=== PATIENT | female | born 1955 | race Caucasian/White ===

== ENCOUNTER → 2017-05-06 | Outpatient (CLI) | payer BC ==
[2017-05-06 07:26] LABS: CH 30.4; CHCM 35.3; HCT 41.4 % (34.0-46.0); HDW 2.55; HGB 14.7 gm/dL (11.4-16.0); MCH 30.6 pg (25.0-35.0); MCHC 35.5 g/dL (31.0-37.0); MCV 86.2 fL (80.0-100.0); Mean Platelet Volume 6.5; RDW 11.4 % (11.5-15.5); WBC 4.8 k/uL (3.8-10.6)
[2017-05-06 08:05] LABS: Anion Gap 10 mmol/L; Blood Urea Nitrogen 12 mg/dL (7-17); Calcium 9.3 mg/dL (8.4-10.2); Carbon Dioxide 25 mmol/L (22-30); Chloride 99 mmol/L (98-107); Cholesterol 143 mg/dL (<200); Glucose 90 mg/dL (74-99); HDL Cholesterol 84 mg/dL (40-60); Non-African American GFR(MDRD) >60 (>60 ml/min/1.73 sqM); Potassium 4.6 mmol/L (3.5-5.1); Sodium 134 mmol/L (137-145)
== END | disposition home or self-care (01) ==
LOC: LABWHC1 06:30
PROVIDERS: ATTEND Nurse Practitioner Women's Health
DX: I10 Essential (primary) hypertension (principal)
CPT/HCPCS: 36415; 80048; 80061; 84443; 85027

== ENCOUNTER → 2018-05-13 | Outpatient (CLI) | payer BC ==
--- NOTE | 2018-05-15 10:22 | MM ---
Reason for exam: screening (asymptomatic). Last mammogram was performed 1 year and 10 months ago. History: Patient is postmenopausal and had first child at age 46. Physical Findings: A clinical breast exam by your physician is recommended on an annual basis and results should be correlated with mammographic findings. MG Screening Mammo w CAD Bilateral CC and MLO view(s) were taken. Prior study comparison: July 16, 2016, bilateral MG screening mammo w CAD. September 15, 2013, bilateral digital screening mammo w/CAD. There are scattered fibroglandular densities. No significant changes when compared with prior studies. ASSESSMENT: Negative, BI-RAD 1 RECOMMENDATION: Routine screening mammogram of both breasts in 1 year.
== END | disposition home or self-care (01) ==
LOC: RADMAMWWP 12:47
PROVIDERS: ATTEND Family Medicine
DX: Z12.31 Encounter for screening mammogram for malignant neoplasm of breast (principal)
CPT/HCPCS: 77067

== ENCOUNTER → 2018-06-10 | Outpatient (CLI) | payer BC ==
[2018-06-10 07:14] LABS: Basophils % (A) 1 %; Eosinophils # (A) 0.1 k/uL (0-0.7); Eosinophils % (A) 1 %; HCT 40.9 % (34.0-46.0); HGB 14.3 gm/dL (11.4-16.0); Lymphocytes # (A) 1.6 k/uL (1.0-4.8); Lymphocytes % (A) 39 %; MCH 30.4 pg (25.0-35.0); Mean Platelet Volume 6.4; Monocytes # (A) 0.3 k/uL (0-1.0); Monocytes % (A) 6 %; Neutrophils # (A) 2.1 k/uL (1.3-7.7); Neutrophils % (A) 50 %; Platelet Count 344 k/uL (150-450); RDW 11.7 % (11.5-15.5); WBC 4.2 k/uL (3.8-10.6)
[2018-06-10 18:00] LABS: ALT 26 U/L (8-44); AST 28 U/L (13-35); Albumin/Globulin Ratio 2.25 (1.20-2.10); Alkaline Phosphatase 65 U/L (41-126); Calcium 9.2 mg/dL (8.7-10.3); Carbon Dioxide 25.9 mmol/L (21.6-31.8); Chloride 100 mmol/L (96-109); Cholesterol 149 mg/dL (0-200); Glucose 95 mg/dL (70-110); Potassium 4.8 mmol/L (3.5-5.5); Sodium 133 mmol/L (135-145); Total Bilirubin 0.8 mg/dL (0.2-1.2); Total Protein 6.5 g/dL (6.2-8.2); Triglycerides <50.0 mg/dL (0.0-149.0); VLDL Calculation 9.98 mg/dL (5.00-40.00)
== END | disposition home or self-care (01) ==
LOC: LABWHC1 06:35
PROVIDERS: ATTEND Nurse Practitioner Women's Health
DX: Z00.00 Encounter for general adult medical examination without abnormal findings (principal); E03.9 Hypothyroidism, unspecified; Z79.899 Other long term (current) drug therapy
CPT/HCPCS: 36415; 80053; 80061; 84439; 84443; 85025

== ENCOUNTER → 2019-06-30 | Outpatient (CLI) | payer BC, OTHER ==
[2019-06-30 07:42] LABS: Basophils # (A) 0.1 k/uL (0-0.2); Basophils % (A) 1 %; Eosinophils # (A) 0.1 k/uL (0-0.7); Eosinophils % (A) 2 %; HCT 42.4 % (34.0-46.0); HGB 14.5 gm/dL (11.4-16.0); Lymphocytes # (A) 1.3 k/uL (1.0-4.8); Lymphocytes % (A) 29 %; MCH 29.7 pg (25.0-35.0); MCHC 34.1 g/dL (31.0-37.0); MCV 86.9 fL (80.0-100.0); Mean Platelet Volume 6.3; Monocytes # (A) 0.3 k/uL (0-1.0); Monocytes % (A) 7 %; Neutrophils # (A) 2.6 k/uL (1.3-7.7); Neutrophils % (A) 59 %; Platelet Count 335 k/uL (150-450); RBC 4.88 m/uL (3.80-5.40); RDW 11.3 % (11.5-15.5); WBC 4.4 k/uL (3.8-10.6)
[2019-06-30 11:43] LABS: ALT 21 U/L (8-44); AST 23 U/L (13-35); African American GFR (CKD) 113.2 (60.0-200.0); Albumin/Globulin Ratio 2.32 (1.60-3.17); Alkaline Phosphatase 70 U/L (41-126); BUN/Creat Ratio 16.67 Ratio (12.00-20.00); Calcium 8.9 mg/dL (8.7-10.3); Carbon Dioxide 27.2 mmol/L (21.6-31.8); Chloride 101 mmol/L (96-109); Chol/HDL Ratio 1.86; Cholesterol 147 mg/dL (0-200); Globulin 1.9 g/dL (1.6-3.3); Glucose 92 mg/dL (70-110); Potassium 4.1 mmol/L (3.5-5.5); Sodium 136 mmol/L (135-145); Total Bilirubin 0.7 mg/dL (0.3-1.2); Total Protein 6.3 g/dL (6.2-8.2); Triglycerides <50.0 mg/dL (0.0-149.0)
== END | disposition home or self-care (01) ==
LOC: LABWHC1 06:47
PROVIDERS: ATTEND Nurse Practitioner Women's Health
DX: Z00.00 Encounter for general adult medical examination without abnormal findings (principal); I10 Essential (primary) hypertension; Z79.899 Other long term (current) drug therapy
CPT/HCPCS: 36415; 80053; 80061; 84439; 84443; 85025

== ENCOUNTER → 2020-05-23 | Outpatient (CLI) | payer BC, OTHER ==
[2020-05-23 07:38] LABS: Basophils % (A) 1 %; Eosinophils # (A) 0.1 k/uL (0-0.7); Eosinophils % (A) 1 %; HCT 42.1 % (34.0-46.0); HGB 14.3 gm/dL (11.4-16.0); Lymphocytes # (A) 1.4 k/uL (1.0-4.8); Lymphocytes % (A) 19 %; MCH 29.2 pg (25.0-35.0); MCHC 33.9 g/dL (31.0-37.0); MCV 86.1 fL (80.0-100.0); Mean Platelet Volume 6.5; Monocytes # (A) 0.4 k/uL (0-1.0); Monocytes % (A) 5 %; Neutrophils # (A) 5.3 k/uL (1.3-7.7); Neutrophils % (A) 74 %; Platelet Count 316 k/uL (150-450); RBC 4.89 m/uL (3.80-5.40); RDW 11.9 % (11.5-15.5); WBC 7.2 k/uL (3.8-10.6)
[2020-05-23 14:10] LABS: ALT 16 U/L (8-44); AST 22 U/L (13-35); African American GFR (CKD) 112.4 (60.0-200.0); Albumin/Globulin Ratio 2.15 (1.60-3.17); Alkaline Phosphatase 67 U/L (41-126); Calcium 9.1 mg/dL (8.7-10.3); Chloride 99 mmol/L (96-109); Chol/HDL Ratio 1.91; Cholesterol 155 mg/dL (0-200); Glucose 98 mg/dL (70-110); Potassium 4.4 mmol/L (3.5-5.5); Sodium 133 mmol/L (135-145); Total Bilirubin 0.8 mg/dL (0.3-1.2); Total Protein 6.3 g/dL (6.2-8.2); Triglycerides <50.0 mg/dL (0.0-149.0)
== END | disposition home or self-care (01) ==
LOC: LABWHC1 07:01
PROVIDERS: ATTEND Family Medicine
DX: Z00.00 Encounter for general adult medical examination without abnormal findings (principal); I10 Essential (primary) hypertension; Z79.899 Other long term (current) drug therapy; Z13.21 Encounter for screening for nutritional disorder
CPT/HCPCS: 36415; 80053; 80061; 82306; 84439; 84443; 85025; 86803

== ENCOUNTER → 2020-09-21 | Outpatient (CLI) | payer BC, OTHER ==
--- NOTE | 2020-09-22 14:16 | MM ---
Reason for exam: screening (asymptomatic). Last mammogram was performed 2 years and 4 months ago. History: Patient is postmenopausal and had first child at age 46. Physical Findings: A clinical breast exam by your physician is recommended on an annual basis and results should be correlated with mammographic findings. MG Screening Mammo w CAD Bilateral CC and MLO view(s) were taken. Prior study comparison: May 13, 2018, bilateral MG screening mammo w CAD. July 16, 2016, bilateral MG screening mammo w CAD. There are scattered fibroglandular densities. No significant changes when compared with prior studies. ASSESSMENT: Benign, BI-RAD 2 RECOMMENDATION: Routine screening mammogram of both breasts in 1 year.
== END | disposition home or self-care (01) ==
LOC: RADMAMWWP 07:22
PROVIDERS: ATTEND Family Medicine
DX: Z12.31 Encounter for screening mammogram for malignant neoplasm of breast (principal)
CPT/HCPCS: 77067

== ENCOUNTER → 2021-06-07 | Outpatient (CLI) | payer BC, OTHER ==
[2021-06-07 11:30] LABS: Basophils # (A) 0.04 X 10*3/uL (0.00-0.10); Basophils % (A) 0.7 %; Eosinophils # (A) 0.04 X 10*3/uL (0.04-0.35); Eosinophils % (A) 0.7 %; HCT 41.1 % (37.2-46.3); HGB 14.3 g/dL (12.0-15.0); Lymphocytes # (A) 1.23 X 10*3/uL (0.90-5.00); Lymphocytes % (A) 21.9 %; MCH 30.2 pg (27.0-32.0); MCHC 34.8 g/dL (32.0-37.0); MCV 86.9 fL (80.0-97.0); Monocytes # (A) 0.48 X 10*3/uL (0.20-1.00); Monocytes % (A) 8.5 %; Neutrophils # (A) 3.82 X 10*3/uL (1.80-7.70); Platelet Count 369 X 10*3/uL (140-440); RBC 4.73 X 10*6/uL (4.10-5.20); RDW 11.3 % (11.5-14.5); WBC 5.62 X 10*3/uL (4.50-10.00)
[2021-06-07 16:25] LABS: African American GFR (CKD) 113.6 (60.0-200.0); Albumin 4.7 g/dL (3.8-4.9); Albumin/Globulin Ratio 2.23 (1.60-3.17); Anion Gap 14.8 mmol/L (4.00-12.00); BUN/Creat Ratio 12.9 Ratio (12.00-20.00); Blood Urea Nitrogen 7.3 mg/dL (9.0-27.0); Carbon Dioxide 21.8 mmol/L (21.6-31.8); Globulin 2.1 g/dL (1.6-3.3); HDL Cholesterol 86.9 mg/dL (40.00-60.00); Potassium 4.4 mmol/L (3.5-5.5); T4, Free (Free Thyroxine) 1.39 ng/dL (0.800-1.800); Total Bilirubin 0.5 mg/dL (0.30-1.20); Total Protein 6.8 g/dL (6.2-8.2); Triglycerides 35.1 mg/dL (0.00-149.00); VLDL Calculation 7.02 mg/dL (5.00-40.00)
== END | disposition home or self-care (01) ==
LOC: LABWHC1 07:06
PROVIDERS: ATTEND Nurse Practitioner Family
DX: Z00.00 Encounter for general adult medical examination without abnormal findings (principal); I10 Essential (primary) hypertension; E55.9 Vitamin D deficiency, unspecified
CPT/HCPCS: 36415; 80053; 80061; 82306; 84439; 84443; 85025

== ENCOUNTER → 2022-01-11 | Outpatient (CLI) | payer BC, OTHER ==
--- NOTE | 2022-01-15 08:28 | MM ---
Reason for Exam: Screening (asymptomatic). Last mammogram was performed 1 year(s) and 3 month(s) ago. Patient History: Menarche at age 15. First Full-Term at age 46. Late child-bearing (after 30). Postmenopausal. Risk Values: Olive 5 year model risk: 2.2%. NCI Lifetime model risk: 8.9%. Film Views: Bilateral CC views were taken. Bilateral MLO views were taken. Prior Study Comparison: 07/16/2016 Bilateral Screening Mammogram, [facility]. 05/13/2018 Bilateral Screening Mammogram, [facility]. 09/21/2020 Bilateral Screening Mammogram, [facility]. Tissue Density: There are scattered fibroglandular densities. Findings: Analyzed By CAD. No significant change from prior exams. Overall Assessment: Negative, BI-RAD 1 Management: Screening Mammogram of both breasts in 1 year. A clinical breast exam by your physician is recommended on an annual basis and results should be correlated with mammographic findings. Also, the patient should continue monthly self breast exams. Electronically signed and approved by: Anay Galvin M.D. Radiologist
== END | disposition home or self-care (01) ==
LOC: RADMAMWWP 07:24
PROVIDERS: ATTEND Family Medicine
DX: Z12.31 Encounter for screening mammogram for malignant neoplasm of breast (principal); Z78.0 Asymptomatic menopausal state
CPT/HCPCS: 77067

== ENCOUNTER → 2022-06-06 | Outpatient (CLI) | payer BC, MEDICARE, OTHER ==
[2022-06-06 10:14] LABS: Basophils # (A) 0.04 X 10*3/uL (0.00-0.10); Basophils % (A) 0.8 %; Eosinophils # (A) 0.03 X 10*3/uL (0.04-0.35); Eosinophils % (A) 0.6 %; HCT 39.1 % (37.2-46.3); Immature Grans, Automated 0.4 %; Lymphocytes # (A) 1.28 X 10*3/uL (0.90-5.00); Lymphocytes % (A) 24.7 %; MCH 29.7 pg (27.0-32.0); MCHC 35.8 g/dL (32.0-37.0); Mean Platelet Volume 9.1 fL (9.5-12.2); Monocytes # (A) 0.48 X 10*3/uL (0.20-1.00); Monocytes % (A) 9.2 %; NRBC Per 100 WBC 0 /100 WBCS (0.0-0.0); Neutrophils # (A) 3.34 X 10*3/uL (1.80-7.70); Neutrophils % (A) 64.3 %; Platelet Count 365 X 10*3/uL (140-440); RBC 4.71 X 10*6/uL (4.10-5.20); RDW 11.6 % (11.5-14.5); WBC 5.19 X 10*3/uL (4.50-10.00)
[2022-06-06 10:31] LABS: African American GFR (CKD) 117.7 (60.0-200.0); Albumin 4.6 g/dL (3.8-4.9); Anion Gap 9.9 mmol/L (10.00-18.00); BUN/Creat Ratio 18.2 Ratio (12.00-20.00); Blood Urea Nitrogen 9.1 mg/dL (9.0-27.0); Calcium 8.9 mg/dL (8.7-10.3); Carbon Dioxide 25.1 mmol/L (20.0-27.5); Globulin 2.3 g/dL (1.6-3.3); HDL Cholesterol 86.7 mg/dL (40.00-60.00); Non-African American GFR(CKD) 101.6 (60.0-200.0); Potassium 4.1 mmol/L (3.5-5.5); T4, Free (Free Thyroxine) 1.27 ng/dL (0.800-1.800); Total Bilirubin 0.5 mg/dL (0.30-1.20); Total Protein 6.9 g/dL (6.2-8.2)
[2022-06-06 10:51] LABS: Chol/HDL Ratio 1.93 Ratio; LDL Cholesterol,Direct Reflex 75.9 mg/dL (0.00-129.00)
== END | disposition home or self-care (01) ==
LOC: LABWHC1 07:09
PROVIDERS: ATTEND Family Medicine
DX: Z00.00 Encounter for general adult medical examination without abnormal findings (principal); I10 Essential (primary) hypertension
CPT/HCPCS: 36415; 80053; 80061; 83721; 84439; 84443; 85025

== ENCOUNTER → 2023-01-02 | Outpatient (CLI) | payer MEDICARE, OTHER ==
[2023-01-02 15:02] LABS: Albumin 4.6 g/dL (3.8-4.9); Albumin/Globulin Ratio 2.2 (1.60-3.17); Anion Gap 9.9 mmol/L (10.00-18.00); BUN/Creat Ratio 18.37 Ratio (12.00-20.00); Blood Urea Nitrogen 11.3 mg/dL (9.0-27.0); Calcium 9.4 mg/dL (8.7-10.3); Carbon Dioxide 28.1 mmol/L (20.0-27.5); Globulin 2.1 g/dL (1.6-3.3); Non-African American GFR(CKD) 94.9 (60.0-200.0); Potassium 5.2 mmol/L (3.5-5.5); Total Bilirubin 0.5 mg/dL (0.30-1.20); Total Protein 6.6 g/dL (6.2-8.2)
== END | disposition home or self-care (01) ==
LOC: LABWHC1 08:34
PROVIDERS: ATTEND Nurse Practitioner Family
DX: R89.9 Unspecified abnormal finding in specimens from other organs, systems and tissues (principal)
CPT/HCPCS: 36415; 80053

== ENCOUNTER → 2023-01-20 | Outpatient (CLI) | payer MEDICARE, OTHER ==
--- NOTE | 2023-01-21 19:52 | MM ---
Reason for Exam: Screening (asymptomatic). Last mammogram was performed 1 year(s) and 1 month(s) ago. Patient History: Menarche at age 15. First Full-Term at age 46. Late child-bearing (after 30). Postmenopausal. Risk Values: Olive 5 year model risk: 2.3%. NCI Lifetime model risk: 8.6%. Prior Study Comparison: 05/13/2018 Bilateral Screening Mammogram, [facility]. 09/21/2020 Bilateral Screening Mammogram, [facility]. 01/11/2022 Bilateral MG screening mammo w CAD, [facility]. Tissue Density: There are scattered fibroglandular densities. Findings: Analyzed By CAD. There is no suspicious group of microcalcifications or new suspicious mass in either breast. Overall Assessment: Negative, BI-RAD 1 Management: Screening Mammogram of both breasts in 1 year. . Patient should continue monthly self-breast exams. A clinical breast exam by your physician is recommended on an annual basis. This exam should not preclude additional follow-up of suspicious palpable abnormalities. Note on Olive scores and lifetime risk: 1. A Olive score greater than 3% is considered moderate risk. If this is the case, consider specialist referral to assess eligibility for a risk reducing agent. 2. If overall lifetime risk for the development of breast cancer is 20% or higher, the patient may qualify for future screening with alternating mammogram and breast MRI. Electronically signed and approved by: Anay Galvin M.D. Radiologist
== END | disposition home or self-care (01) ==
LOC: RADMAMWWP 07:40
PROVIDERS: ATTEND Family Medicine
DX: Z12.31 Encounter for screening mammogram for malignant neoplasm of breast (principal); Z78.0 Asymptomatic menopausal state
CPT/HCPCS: 77067

== ENCOUNTER → 2023-08-04 | Outpatient (CLI) | payer MEDICARE, OTHER ==
--- NOTE | 2023-08-04 18:54 | BD ---
EXAMINATION TYPE: Axial Bone Density DATE OF EXAM: 08/04/2023 CLINICAL HISTORY: 68 years old Female. ICD-10 CODE: Z78.0 MENOPAUSE PRESENT Height: 67 Weight: 152 FRAX RISK QUESTIONS: Secondary Osteoporosis: no RISK FACTORS HISTORY OF: Family History of Osteoporosis: no Active: yes Diet low in dairy products/other sources of calcium: no Postmenopausal woman: yes Lost more than 2 inches in height since high school: yes 69.5 Frequent falls: no MEDICATIONS: Additional Medications: yes [facility] meds EXAM MEASUREMENTS: Bone mineral densitometry was performed using the [facility]. Bone mineral density as measured about the Lumbar spine is: ----- L1-L4(G/cm2): 0.743 T Score Values are as follows: ----- L1: -2.5 ----- L2: -4.0 ----- L3: -3.6 ----- L4: -4.5 ----- L1-L4: -3.6 Z Score Values are as follows: ----- L1: -1.0 ----- L2: -2.6 ----- L3: -2.2 ----- L4: -3.0 ----- L1-L4: -2.2 Bone mineral density baseline Bone mineral density about the R hip (g/cm2): 0.692 Bone mineral density about the L hip (g/cm2): 0.619 T Score values are as follows: -----R Neck: -2.7 -----L Neck: -3.1 -----R Total: -2.5 -----L Total: -3.1 Z Score values are as follows: -----R Neck: -1.3 -----L Neck: -1.6 -----R Total: -1.3 -----L Total: -1.9 Bone mineral density baseline FRAX%s: The graph provided illustrates a 17.5% chance for a major osteoporotic fx and a 5.5% chance f or the hips probability for fx in 10 years time. IMPRESSION: Osteoporosis (T Score less than -2.5). There is increased fracture risk and therapy is usually indicated based on age. Re-Screen 1-2 years. NOTE: T-SCORE=SD OF THE YOUNG ADULT MEAN.
== END | disposition home or self-care (01) ==
LOC: RADBDWWP 09:06
PROVIDERS: ATTEND Family Medicine
DX: M81.0 Age-related osteoporosis without current pathological fracture (principal); Z78.0 Asymptomatic menopausal state
CPT/HCPCS: 77080

== ENCOUNTER → 2024-01-27 | Outpatient (CLI) | payer MEDICARE, OTHER ==
--- NOTE | 2024-01-28 13:07 | MM ---
Reason for Exam: Screening (asymptomatic). Last screening mammogram was performed 12 month(s) ago. Patient History: Menarche at age 15. First Full-Term at age 46. Late child-bearing (after 30). Postmenopausal. Risk Values: Olive 5 year model risk: 2.3%. NCI Lifetime model risk: 8.2%. Prior Study Comparison: 09/21/2020 Bilateral Screening Mammogram, [facility]. 01/11/2022 Bilateral MG screening mammo w CAD, [facility]. 01/20/2023 Bilateral MG screening mammo w CAD, [facility]. Tissue Density: The breasts are heterogeneously dense, which may obscure small masses. Findings: Analyzed By CAD. There is no suspicious group of microcalcifications or new suspicious mass in either breast. Overall Assessment: Negative, BI-RAD 1 Management: Screening Mammogram of both breasts in 1 year. . Patient should continue monthly self-breast exams. A clinical breast exam by your physician is recommended on an annual basis. This exam should not preclude additional follow-up of suspicious palpable abnormalities. Note on Olive scores and lifetime risk: 1. A Olive score greater than 3% is considered moderate risk. If this is the case, consider specialist referral to assess eligibility for a risk reducing agent. 2. If overall lifetime risk for the development of breast cancer is 20% or higher, the patient may qualify for future screening with alternating mammogram and breast MRI. Electronically signed and approved by: Joon Moncada M.D. Radiologis
== END | disposition home or self-care (01) ==
LOC: RADMAMWWP 07:36
PROVIDERS: ATTEND Family Medicine
DX: Z12.31 Encounter for screening mammogram for malignant neoplasm of breast (principal); Z78.0 Asymptomatic menopausal state
CPT/HCPCS: 77063; 77067

== ENCOUNTER 2025-01-24 07:58 | Day surgery (SDC) | payer MEDICARE, OTHER ==
[2025-01-21 09:48] VITALS: BMI 22.8
[~2025-01-24 07:58] MED LIST: HYDROmorphone 0.5 MG/0.5 ML SYRINGE IVP PRN; LIDOCAINE 1% (10MG/ML) FOR IV START INTRADERMA PRN; Pre Op ABX Message 1 EACH MISC MISCELLANE ONE; droPERidol 2.5 MG/ML VIAL IVP PRN
[2025-01-24 08:28] VITALS: TEMP 97
[2025-01-24] MEDS: DEXAMETHASONE SOD PHOSPHATE 4 MG/ML 1 ML VIAL IV ONE (08:43)
[2025-01-24] MEDS: ONDANSETRON 4 MG/2 ML VIAL IVP ONE (08:43)
[2025-01-24] MEDS: HEPARIN SODIUM,PORCINE 5,000 UNIT/ML 1 ML VIAL SQ PRN (08:43)
[2025-01-24] MEDS: ACETAMINOPHEN TAB 500 MG TAB PO PRN (08:44)
[2025-01-24] MEDS: LACTATED RINGERS 1,000 ML IV SCH (08:44)
[2025-01-24] MEDS: IV FLUID CONTINUATION 1,000 ML IV ONE ×2 (08:51→09:29)
[2025-01-24] MEDS ORDERED: fentaNYL (PF) 50 MCG/ML 2 ML AMP ONE (09:25)
[2025-01-24] MEDS ORDERED: PROPOFOL 10 MG/ML 20 ML VIAL IV ONE (09:25)
[2025-01-24] MEDS ORDERED: KETAMINE HCL IN 0.9 % NACL 50 MG/5 ML SYRINGE ONE (09:25)
[2025-01-24] MEDS ORDERED: MIDAZOLAM 2 MG/2 ML VIAL ONE (09:25)
[2025-01-24] MEDS: BUPIVACAINE (PF) 0.25% 30 ML VIAL SQ ONE ×3 (09:49→09:51)
--- NOTE | 2025-01-24 10:56 | P.OP ---
Date of Procedure: 01/24/25 Procedure(s) Performed: PREOPERATIVE DIAGNOSIS: Sebaceous cyst left chest wall, sebaceous cyst right posterior neck, rectal bleeding POSTOPERATIVE DIAGNOSIS: Same PROCEDURE: Excision sebaceous cyst left chest wall with intermediate closure, excision right posterior neck sebaceous cyst, colonoscopy ANESTHESIA: [facility] SURGEON: Richar Rendon M.D. SPECIMENS: Sebaceous cyst ENDOSCOPIC PROCEDURE: The patient was placed on the operating table in the supine position. The patient's left chest wall prepped and draped sterilely. A vertical elliptical incision was made using the scalpel after localizing with Marcaine. The subcutaneous tissues were dissected sharply. The cyst was completely excised. This measured 1.5 cm in size. This was sent to pathology. Flaps were raised medially and laterally to assist with closure of the skin which was relatively tight there. The subcutaneous tissues were then reapproximated using interrupted 3-0 Vicryl sutures. Skin was reapproximated using a combination of simple and horizontal mattress interrupted 4-0 nylon sutures. Sterile dressing was then applied. Patient was then placed in the left decubitus position. The right posterior neck sebaceous cyst was excised in a similar fashion. This was a much smaller sebaceous cyst measuring only approximately 6 mm in size. This did not require any subcutaneous sutures. A single interrupted 4-0 nylon stitch was used to reapproximate the skin. Sterile dressings were applied. The Olympus colonoscope was then inserted into the anus and passed under direct visualization to the base of the cecum. The appendiceal orifice was visualized. From that point the scope was slowly withdrawn inspecting all surfaces carefully. There were no neoplastic inflammatory or polypoid lesions throughout the cecum, ascending, transverse, descending, sigmoid and rectum. There was no visualized diverticulosis noted. Digital rectal examination was normal. The patient was taken to the recovery room in stable condition per anesthesia guidelines. RECOMMENDATIONS: Await biopsy results. Follow-up in the office 2 weeks.
[2025-01-24] MEDS ORDERED: NALOXONE 0.4 MG/ML 1 ML VIAL IV PRN (10:57)
[2025-01-24 11:17] VITALS: BP 134/88; PULSE 72; RESP 16
== END 2025-01-24 11:49 | disposition home or self-care (01) ==
LOC: OR 07:58
PROVIDERS: ATTEND Surgery
DX: K62.5 Hemorrhage of anus and rectum (principal); L72.3 Sebaceous cyst; I10 Essential (primary) hypertension; Z88.2 Allergy status to sulfonamides; Z79.899 Other long term (current) drug therapy
CPT/HCPCS: 88304; 45378; 11402; 12031; J2250; J1644; J1100; J2405; J3010; J2704; J0665

== ENCOUNTER → 2025-03-02 | Outpatient (CLI) | payer MEDICARE, OTHER ==
--- NOTE | 2025-03-02 07:33 | MM ---
Reason for Exam: Screening (asymptomatic). Last mammogram was performed 1 year(s) and 1 month(s) ago. Patient History: Menarche at age 15. First Full-Term at age 46. Late child-bearing (after 30). Postmenopausal. Patient has history of breast feeding. Risk Values: Olive 5 year model risk: 2.3%. NCI Lifetime model risk: 7.9%. Prior Study Comparison: 01/11/2022 Bilateral MG screening mammo w CAD, [facility]. 01/20/2023 Bilateral MG screening mammo w CAD, [facility]. 01/27/2024 Bilateral MG 3D screening mammo w/cad, [facility]. Tissue Density: There are scattered areas of fibroglandular density. Findings: Analyzed By CAD. There is no suspicious group of microcalcifications or new suspicious mass in either breast. Overall Assessment: Negative, BI-RAD 1 Management: Screening Mammogram of both breasts in 1 year. . Patient should continue monthly self-breast exams. A clinical breast exam by your physician is recommended on an annual basis. This exam should not preclude additional follow-up of suspicious palpable abnormalities. Note on Olive scores and lifetime risk: 1. A Olive score greater than 3% is considered moderate risk. If this is the case, consider specialist referral to assess eligibility for a risk reducing agent. 2. If overall lifetime risk for the development of breast cancer is 20% or higher, the patient may qualify for future screening with alternating mammogram and breast MRI. [facility], , 03/02/2025 7:30 AM. Electronically signed and approved by: Joon Moncada M.D. Radiologis
== END | disposition home or self-care (01) ==
LOC: RADMAMWWP 07:03
PROVIDERS: ATTEND Family Medicine
DX: Z12.31 Encounter for screening mammogram for malignant neoplasm of breast (principal); R92.323 Mammographic fibroglandular density, bilateral breasts; Z78.0 Asymptomatic menopausal state
CPT/HCPCS: 77063; 77067